=== PATIENT | female | born 1990 | race Caucasian/White ===

== ENCOUNTER 2017-12-30 10:02 | Emergency (ER) | payer OTHER ==
[2017-12-30 10:38] LABS: ABS Basophils 0 10^3/ul (0-0.2); ABS Eosinophils 0.1 10^3/ul (0-0.6); ABS Lymphocytes 1.4 10^3/ul (1.0-4.8); ABS Monocytes 0.5 10^3/ul (0-0.8); ABS Neutrophils 6.8 10^3/ul (1.5-7.7); ABS Nucleated RBC 0 10^3/ul; Eosinophil % 0.6 % (0-6); Hematocrit 43 % (35-47); Hemoglobin 14.9 g/dl (12.0-16.0); Lymphocyte % 16.3 % (25-47); Mean Corpuscular HGB Conc 34 g/dl (31-36); Mean Corpuscular Hemoglobin 35 pg (27-31); Mean Corpuscular Volume 102 fL (80-97); Mean Platelet Volume 8 um3 (7.4-10.4); Nucleated Red Blood Cells % 0.1; Platelet Count 250 10^3/ul (150-450); Red Blood Count 4.26 10^6/ul (4.0-5.4); Red Cell Distribution Width 13 % (10.5-15); White Blood Count 8.8 10^3/ul (3.5-10.8)
[2017-12-30 10:53] LABS: EGFR Non-African American 101.3 (>60)
[2017-12-30 10:55] LABS: INR 0.88 (0.77-1.02)
--- NOTE | 2017-12-30 10:59 | ED ---
GI/ HPI - HPI Summary HPI Summary: Patient here with prolonged and heavy menstrual period. She reports this cycle started on December 13, 2017. This presented as spotting for 2 days then advanced into a "regular" period 7 days and has been heavier the past 3 days. She is using a super tampon every 2-3 hours. She reports cramping started yesterday - she has not tried any meds that she reports these do not typically help. She has been using heat which helps temporarily. She is reporting lower pelvic pain left greater than right. She admits to a history of ovarian cyst on the right a few years ago that required surgical intervention. She is concerned that she is having the same issue (CYST) but on the left today. She does admit to sexual activity although not frequently - last active 3 weeks ago. Denies dyspareunia, postcoital bleeding, vaginal discharge. She is up-to- date with Pap smears. Reports a history of HPV which cleared on its own. Also has a history of genital herpes - she was taking Valtrex daily to prevent outbreaks however has not taken these daily in the past few years. She only takes PRN for outbreaks which she reports are less than once a year. No other history of STDs otherwise. She was on Depo-Provera from [id number] for dysmenorrhea, heavy periods, and also for control. She stopped this for a brief period and reports she went back onto Depo in 2014 for 6 months for cyst control (this was after surgical repair of right ovarian cyst previously mentioned). She did not however stay on this for long as she reports her body does not do well with hormones - she gets headaches, nausea, mood swings, etc. She then got in February 2017 - had a D&C - no complications. Currently , she takes an oral control pill which she started in April 2017 (8 months ago). She reports to taking this at the same time every day and has not skipped any doses. She does admit to increased urination however it is not painful. She also reports bilateral lower back soreness with pain - does not have focal flank pain and no history of kidney stones or urinary tract infection. She is moving her bowels well without pain. - History of Current Complaint Chief Complaint: EDVaginalBleeding Time Seen by Provider: 12/30/17 10:19 Stated Complaint: VAGINAL BLEEDING Hx Obtained From: Patient Pain Intensity: 6 - Allergy/Home Medications Allergies/Adverse Reactions: Allergies Allergy/AdvReac Type Severity Reaction Status Date / Time No Known Allergies Allergy Verified 11/01/15 16:54 PMH/Surg Hx/FS Hx/Imm Hx Previously Healthy: Yes Endocrine/Hematology History: Denies: Hx Anticoagulant Therapy, Hx Blood Disorders, Hx Thyroid Disease, Hx Anemia, Hx Unexplained Bleeding, Autoimmune Disease History: Reports: Other Problems/Disorders - Rt ovarian cyst w/ surgical reduction - Surgical History Surgery Procedure, Year, and Place: OVARIAN CYST ON RT Infectious Disease History: No Infectious Disease History: Denies: Traveled Outside the [place] in Last 30 Days - Family History Known Family History: Positive: Other - breast ca, ovarian ca - Social History Lives: With Family Alcohol Use: Occasionally Hx Substance Use: No Substance Use Type: Reports: None Hx Tobacco Use: No Smoking Status (MU): Never Smoked Tobacco Review of Systems Constitutional: Other - "hotflashes" Positive: Fatigue - feels wiped out. Negative: Fever, Chills Eyes: Negative ENT: Negative Cardiovascular: Negative Negative: Chest Pain Respiratory: Negative Positive: Abdominal Pain, Nausea. Negative: Vomiting, Diarrhea Positive: frequency, other - vaginal bleeding. Negative: burning, dysuria, discharge, flank pain, hematuria, incontinence, pain, urgency Musculoskeletal: Negative Skin: Negative Neurological: Negative Positive: Anxious All Other Systems Reviewed And Are Negative: Yes Physical Exam Triage Information Reviewed: Yes Vital Signs On Initial Exam: Initial Vitals Temp Pulse Resp BP Pulse Ox 97.7 F 72 19 138/80 97 12/30/17 10:12 12/30/17 10:12 12/30/17 10:12 12/30/17 10:12 12/30/17 10:12 Vital Signs Reviewed: Yes Appearance: Positive: Well-Appearing, Well-Nourished, Pain Distress - Lying on stretcher - discomfort appears mild - quite anxious Skin: Positive: Warm, Skin Color Reflects Adequate Perfusion, Dry - hirsutism Head/Face: Positive: Normal Head/Face Inspection Eyes: Positive: Normal, EOMI, Conjunctiva Clear - Anicteric sclera ENT: Positive: Normal ENT inspection, Hearing grossly normal, Pharynx normal - Oral mucosa moist Neck: Positive: Supple - No gross thyromegaly Respiratory/Lung Sounds: Positive: Clear to Auscultation, Breath Sounds Present Cardiovascular: Positive: Normal, RRR, S1, S2. Negative: Leg Edema Left, Leg Edema Right Abdomen Description: Positive: Soft, Other: - Left lower quadrant tenderness palpationno rebounding Bowel Sounds: Positive: Present Pelvic Exam: Positive: external exam normal, no cerv. motion tender, active bleeding - Scant bright red blood with mucus from on as an into the vaginal canalno signs of lesions or laceration, tender adnexa - Left. Negative: cervicitis, discharge, lesions, mass, tender uterus, ulcers Musculoskeletal: Positive: Normal, Strength/ROM Intact Neurological: Positive: Normal, Sensory/Motor Intact, Alert, Oriented to Person Place, Time, CN Intact II-III Psychiatric: Positive: Anxious Diagnostics - Vital Signs Vital Signs Temp Pulse Resp BP Pulse Ox 12/30/17 10:12 97.7 F 72 19 138/80 97 - Laboratory Lab Results: Lab Results 12/30/17 Range/Units 10:30 WBC 8.8 (3.5-10.8) 10^3/ul RBC 4.26 (4.0-5.4) 10^6/ul Hgb 14.9 (12.0-16.0) g/dl Hct 43 (35-47) % MCV 102 H (80-97) fL MCH 35 H (27-31) pg MCHC 34 (31-36) g/dl RDW 13 (10.5-15) % Plt Count 250 (150-450) 10^3/ul MPV 8 (7.4-10.4) um3 Neut % (Auto) 77.1 (38-83) % Lymph % (Auto) 16.3 L (25-47) % [place] % (Auto) 5.5 (1-9) % Eos % (Auto) 0.6 (0-6) % Baso % (Auto) 0.5 (0-2) % Absolute Neuts (auto) 6.8 (1.5-7.7) 10^3/ul Absolute Lymphs (auto) 1.4 (1.0-4.8) 10^3/ul Absolute Monos (auto) 0.5 (0-0.8) 10^3/ul Absolute Eos (auto) 0.1 (0-0.6) 10^3/ul Absolute Basos (auto) 0 (0-0.2) 10^3/ul Absolute Nucleated RBC 0 10^3/ul Nucleated RBC % 0.1 Result Diagrams: 12/30/17 10:30 12/30/17 10:30 Lab Statement: Any lab studies that have been ordered have been reviewed, and results considered in the medical decision making process. GIGU Course/Dx - Course Course Of Treatment: Patient's ultrasound reveals no hydronephrosis or renal lithiasis. Her pelvic ultrasound however reveals a left ovarian cyst measuring 4.3 cm at its largest. This appears to be a simple cyst and ovaries appear to have good blood flow bilaterally. Patient reports she's been taking oral control however suspect with recent bleeding and cyst symptoms she may have missed a dose here and there. Discussed with Dr. Pike who advises follow-up in 6 weeks with her office for repeat ultrasound. We'll also educate the patient about compliance with control. She will be prescribed naproxen and heat applications to her pelvis for pain relief. Discussed if symptoms get worse or she develops fevers chills nausea vomiting or heavy vaginal bleeding such as saturating a pad or tampon every hour for 12 hours consistently, to return to the emergency department. Her labs are unremarkable for acute blood loss, anemia, , infection. Her vitals are stable and she appears more comfortable after receiving heat packs and Toradol through her IV. - Diagnoses Provider Diagnoses: Ovarian cyst, left Discharge - Discharge Plan Condition: Stable Disposition: HOME Prescriptions: Naproxen TAB* [Naprosyn 250 mg TAB*] 500 mg PO Q12HR PRN #20 tab PRN Reason: Pain Patient Education Materials: Ovarian Cyst (ED) Referrals: Paola Pike MD [Medical Doctor] - Additional Instructions: You appear to have an ovarian cyst on the left side. It is important that you return to your control and take daily is recommended. I missing doses, you may induce withdrawal bleeding and ovulation which can produce cysts. If you have been taking her control as directed, he may discuss possibly changing this with your [employer]ACHINE [employer] UP [employer]PERATOR [employer]OL at her six-week follow-up appointment. It is important that you follow-up in 6 weeks for repeat exam. Call PROFILING MACHINE SET UP OPERATOR [employer] on Monday to schedule follow-up appointment. In the meantime you may take naproxen 500 mg with food every 12 hours and use heat packs to manage her pain. *If you develop fevers, chills, nausea, vomiting, diarrhea, worsening of abdominal pain or heavy vaginal bleeding including changing a pad or tampon every hour for 12 consecutive hours, return to the emergency department.
[2017-12-30 11:33] LABS: Urine Appearance Cloudy; Urine Blood 1+ (Negative); Urine Color Yellow; Urine Ketones Trace (Negative); Urine Protein 1+(30 mg/dL) (Negative); Urine Specific Gravity 1.026 (1.010-1.030); Urine Urobilinogen Negative (Negative)
[2017-12-30] MEDS ORDERED: Ketorolac INJ* 30 MG/ML 1 ML VIAL IV PUSH ONE (11:43)
--- NOTE | 2017-12-30 12:29 | RAD ---
INDICATION: Left flank pain COMPARISON: CT abdomen pelvis dated November 01, 2015 TECHNIQUE: Real-time ultrasound examination of the left kidney only including grayscale and Doppler color flow analysis. FINDINGS: The left kidney measures 12.7 x 4.9 x 5.4 cm. There is no hydronephrosis. There are no hypervascular renal masses. There are no renal calculi or hydronephrosis identified. IMPRESSION: Normal ultrasound of the left kidney.
--- NOTE | 2017-12-30 12:31 | RAD ---
INDICATION: Left lower quadrant pain COMPARISON: Similar ultrasound dated August 02, 2015 TECHNIQUE: Real-time transabdominal only ultrasound examination of the female pelvis including grayscale and Doppler color flow imaging. FINDINGS: Uterus: The uterus is normal in size and echogenicity measuring 7.7 x 4.2 x 4.2 cm. The endometrial stripe is smooth and uniform measuring 8 mm in thickness. Ovaries: The right and left ovary measure 3.6 x 1.5 x 2.5 cm and 5.2 x 5.1 x 4.2 cm, respectively. Normal arterial and venous waveforms are identified. Within the left ovary there is an anechoic and avascular cystic structure measuring 4.3 x 3.8 x 4.1 cm. There is no free fluid in the cul-de-sac. IMPRESSION: In the left ovary there is a 4.3 cm anechoic and avascular structure most consistent with a dominant follicle in a woman of this age.
[2017-12-30 13:52] VITALS: BP 115/88
== END 2017-12-30 13:51 | disposition home or self-care (01) ==
LOC: ED 10:02
DX: N83.202 Unspecified ovarian cyst, left side (principal)
CPT/HCPCS: 36415; 76775; 76856; 80053; 81003; 81015; 83690; 84702; 85025; 85610; 85730; 86140; 87480; 87491; 87510; 87591; 87661; 96374; 99283; J1885

== ENCOUNTER 2019-06-23 09:16 | Emergency (ER) | payer MEDICAID, OTHER ==
[2019-06-23 09:58] VITALS: BP 113/74
--- NOTE | 2019-06-23 10:07 | UC ---
Throat Pain/Nasal Neftali HPI - HPI Summary HPI Summary: c/o sore throat and bilateral ear pain x 1 week. Denies any cough or congestion. Did have an ileus last week. Concerned for strep throat. - History of Current Complaint Chief Complaint: UCRespiratory Stated Complaint: SORE THROAT Time Seen by Provider: 06/23/19 09:52 Hx Obtained From: Patient Hx Last Menstrual Period: 05/18/19 Onset/Duration: Sudden Onset, Lasting Days Severity: Moderate Pain Intensity: 6 Associated Signs & Symptoms: Positive: Dysphagia, Sinus Discomfort - Allergies/Home Medications Allergies/Adverse Reactions: Allergies Allergy/AdvReac Type Severity Reaction Status Date / Time No Known Allergies Allergy Verified 06/23/19 09:52 Home Medications: Home Medications Dm/PE/Acetaminophen/Doxylamine [COLD & FLU MULTI-SYMPTOM (Liquid)] 2 cap PO ONCE PRN 06/23/19 [History Confirmed 06/23/19] PMH/Surg Hx/FS Hx/Imm Hx Previously Healthy: Yes Other History Of: Negative For: Anticoagulant Therapy - Surgical History Surgical History: Yes Surgery Procedure, Year, and Place: OVARIAN CYST ON RT and left. [facility] - Family History Known Family History: Positive: Other - breast ca, ovarian ca - Social History Alcohol Use: None Substance Use Type: None Smoking Status (MU): Former Smoker When Did the Patient Quit Smoking/Using Tobacco: aug 2018 Review of Systems All Other Systems Reviewed And Are Negative: Yes ENT: Positive: Sore Throat, Ear Ache Is Patient Immunocompromised?: No Physical Exam Triage Information Reviewed: Yes Appearance: Well-Nourished, Ill-Appearing, Pain Distress Vital Signs: Initial Vital Signs Temp 98.5 F 06/23/19 09:54 Pulse 71 06/23/19 09:54 Resp 15 06/23/19 09:54 BP 113/74 06/23/19 09:54 Pulse Ox 100 06/23/19 09:54 Vital Signs Reviewed: Yes Eye Exam: Normal ENT Exam: Normal ENT: Positive: Pharyngeal erythema - blisters noted on posterior pharnyx, Nasal congestion, TM bulging Dental Exam: Normal Neck exam: Normal Neck: Positive: Supple, Nontender, No Lymphadenopathy Respiratory: Positive: No respiratory distress, No accessory muscle use, Crackles - LRL, Other: - chest heavy with breathing Cardiovascular Exam: Normal Cardiovascular: Positive: RRR, No Murmur, Pulses Normal Abdominal Exam: Normal Abdomen Description: Positive: Nontender, No Organomegaly, Soft Bowel Sounds: Positive: Present Musculoskeletal Exam: Normal Neurological Exam: Normal Psychological Exam: Normal Skin Exam: Normal Throat Pain/Nasal Course/Dx - Course Course Of Treatment: hx obtained, exam performed ,meds reviewed, rapid strep obtained and was negatvie, chest xray obtained. - Differential Dx/Diagnosis Differential Diagnosis/HQI/PQRI: Otitis Media, Pharyngitis, Sinusitis, URI Provider Diagnosis: Pharyngitis Discharge - Sign-Out/Discharge Documenting (check all that apply): Patient Departure All imaging exams completed and their final reports reviewed: No Studies - Discharge Plan Condition: Stable Disposition: HOME Prescriptions: predniSONE [Prednisone 20 MG TAB] 40 mg PO DAILY #10 tablet Patient Education Materials: Pharyngitis (ED) Forms: *Work Release Referrals: Jami Valles PA [Primary Care Provider] - Additional Instructions: 1. your strep test was negative 2. Take the prednisone to help with the inflammation 3. warm fluids, tylenol and ibuprofen for pain. - Billing Disposition and Condition Condition: STABLE Disposition: Home
== END 2019-06-23 10:35 | disposition home or self-care (01) ==
LOC: UCCORT 09:16
DX: J02.9 Acute pharyngitis, unspecified (principal); Z87.891 Personal history of nicotine dependence
CPT/HCPCS: 71046; 87651; 99212; G0463